=== PATIENT | female | born 1960 | race Caucasian/White ===

== ENCOUNTER 2016-06-01 07:28 | Emergency (ER) | payer OTHER ==
[2016-06-01] MEDS ORDERED: IBUPROFEN 600 MG TAB PO ONE (07:41)
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
[2016-06-01 12:48] VITALS: BP 140/83; PULSE 65; RESP 18; TEMP 98.1; O2SAT 98
== END 2016-06-01 12:48 | disposition home or self-care (01) ==
LOC: EDUNIT#
DX: S39.012A Strain of muscle, fascia and tendon of lower back, initial encounter (principal); M48.54XA Collapsed vertebra, not elsewhere classified, thoracic region, initial encounter for fracture; W18.39XA Other fall on same level, initial encounter; Y92.410 Unspecified street and highway as the place of occurrence of the external cause

== ENCOUNTER 2016-12-25 13:47 | Emergency (ER) | payer OTHER ==
[2016-12-25 13:59] VITALS: O2SAT 95
--- NOTE | 2016-12-25 14:52 | EDPHY ---
H & P Stated Complaint: seizure Time Seen by Provider: 12/25/16 14:51 - Personal History Current Tetanus/Diphtheria Vaccine: Unsure Current Tetanus Diphtheria and Acellular Pertussis (TDAP): Unsure Tetanus Vaccine Date: within 10 years - Medical/Surgical History Hx Asthma: No Hx Chronic Respiratory Disease: No Hx Diabetes: No Hx Cardiac Disease: No Hx Renal Disease: No Hx Cirrhosis: No Hx Alcoholism: No Hx HIV/AIDS: No Hx Splenectomy or Spleen Trauma: No Other PMH: epilespsy hyperlipidemia, HTN, hypothyroid, anxiety - Social History Smoking Status: Never smoked Constitutional: Initial Vital Signs Temperature (C) 37.3 C 12/25/16 13:58 Heart Rate 94 12/25/16 13:58 Respiratory Rate 18 12/25/16 13:58 Blood Pressure 122/91 H 12/25/16 13:58 O2 Sat (%) 95 12/25/16 13:58 O2 Delivery Mode Room Air Allergies/Adverse Reactions: acetaminophen [From Tylenol] Allergy (Verified 12/25/16 13:58) codeine Allergy (Verified 12/25/16 13:58) loratadine [From Claritin] Allergy (Verified 12/25/16 13:58) Home Medications: Medication Instructions Recorded Atenolol [Tenormin 25 mg (*)] 04/16/15 Atorvastatin Calcium [Lipitor 10 04/16/15 mg (*)] Levothyroxine [Synthroid 25 mcg 04/16/15 (*)] clonazePAM [CLONAZEPAM] 04/16/15 levETIRAcetam [Keppra] 04/16/15 Medical Decision Making ED Course/Re-evaluation: CHIEF COMPLAINT: Seizure HISTORY OF PRESENT ILLNESS: The patient is a 56 y/o female with a history of epilepsy arriving after a reported seizure this afternoon. She does not remember the incident today, but says "I've been having grand mals" several times this year. She notes she was up late this morning and thinks that contributed to her seizure today. She's had multiple rounds of brain imaging and EEGs for her seizures. She takes Keppra to manage her condition. She denies missing any doses and states she is always compliant with her medication and takes it at the same time twice daily. She denies any trauma other than a mild tongue abrasion from the event today and currently only complains of fatigue. REVIEW OF SYSTEMS: A 10 point review of systems was performed and is negative with the exception of the elements mentioned in the history of present illness. PHYSICAL EXAM: HR, BP, O2 Sat, RR. Temp noted General Appearance: Alert, well hydrated, appropriate, and non-toxic appearing. Head: Atraumatic without scalp tenderness or obvious injury Eyes: Pupils equal, round, reactive to light and accommodation, EOMI, no trauma , no injection. Nose: Atraumatic, no rhinorrhea, clear. Throat: There is no erythema or exudates, no lesions, normal tonsils, mucus membranes moist. Left lateral tongue abrasion. Neck: Supple, nontender, no lymphadenopathy. Respiratory: No retractions, no distress, no wheezes, and no accessory muscle use. Lungs are clear to auscultation bilaterally. Cardiovascular: Regular rate and rhythm, no murmurs, rubs, or gallops. Good capillary refill all extremities. Gastrointestinal: Abdomen is soft, nontender, non-distended, no masses, no rebound, no guarding, no peritoneal signs. Musculoskeletal: Normal active ROM of all extremities, atraumatic. Neurological: Alert, appropriate, and interactive. Nonfocal neuro exam. Skin: No rashes, good turgor, no nodules on palpation. Past medical history: Epilepsy since age 6, baseline left shoulder pain. Past surgical history: denies Family history: noncontributory Social history: Lives in [place] DIFFERENTIAL DIAGNOSIS: The differential diagnosis for the patient's seizure included but was not limited to electrolyte abnormality, alcohol withdrawal, medication noncompliance, head injury, ERP PM structural abnormality, and break through seizure. MEDICAL DECISION MAKING: This is a 56 y/o female with a history of epilepsy who presents for evaluation following a seizure this afternoon. She currently only complains of feeling fatigued. Basic chemistry panel shows low CO2 and elevated anion gap, indicative of a seizure. No indication for imaging. Patient will be discharged home in good condition with standard seizure care and return precautions. She is comfortable with this plan. - Data Points Laboratory Results: Laboratory Results 12/25/16 13:50 12/25/16 13:50 Sodium 143 mEq/L mEq/L (134-144) Potassium 4.4 mEq/L mEq/L (3.5-5.2) Chloride 106 mEq/L mEq/L (97-110) Carbon Dioxide 15 mEq/l L mEq/l (22-31) Anion Gap 22 mEq/L H mEq/L (8-16) BUN 17 mg/dL mg/dL (7-23) Creatinine 0.8 mg/dL mg/dL (0.6-1.0) Estimated GFR > 60 Glucose 81 mg/dL mg/dL (70-100) Calcium 9.4 mg/dL mg/dL (8.5-10.4) Departure - Departure Disposition: Home, Routine, Self-Care Clinical Impression: Seizure disorder Condition: Good Instructions: Epilepsy (ED) Additional Instructions: 1. Take your Keppra as prescribed. 2. Follow up with your neurologist to discuss this breakthrough seizure. 3. No driving or other activities that could put you or others at risk in the case of a recurrent seizure. 4. Return to the ED for any worsening of condition. Referrals: Patient,NotPresent [Unknown] - As per Instructions Ronen Dumont DO [Doctor of Osteopathy] - As per Instructions Report Scribed for: Adrian Judge Report Scribed by: Sheila Grimm Date of Report: 12/25/16 Time of Report: 15:01
[2016-12-25 15:12] LABS: ANION GAP 22 mEq/L (8-16); CALCIUM 9.4 mg/dL (8.5-10.4); CARBON DIOXIDE 15 mEq/l (22-31); CHLORIDE 106 mEq/L (97-110); CREATININE 0.8 mg/dL (0.6-1.0); GLOMERULAR FILTRATION RATE > 60; GLUCOSE 81 mg/dL (70-100); POTASSIUM 4.4 mEq/L (3.5-5.2); SODIUM 143 mEq/L (134-144)
[2016-12-25 15:43] VITALS: BP 155/63; PULSE 85; RESP 16; TEMP 98.2
== END 2016-12-25 15:43 | disposition home or self-care (01) ==
LOC: EDUNIT#
DX: G40.909 Epilepsy, unspecified, not intractable, without status epilepticus (principal); I10 Essential (primary) hypertension

== ENCOUNTER 2018-06-09 11:35 | Emergency (ER) | payer OTHER ==
--- NOTE | 2018-06-09 11:36 | EDPHY ---
H & P Time Seen by Provider: 06/09/18 11:38 Constitutional: Initial Vital Signs Temperature (C) 36.5 C 06/09/18 11:40 Heart Rate 78 06/09/18 11:40 Respiratory Rate 18 06/09/18 11:40 Blood Pressure 169/90 H 06/09/18 11:40 O2 Sat (%) 94 06/09/18 11:40 O2 Delivery Mode Room Air Allergies/Adverse Reactions: acetaminophen [From Tylenol] Allergy (Verified 12/25/16 13:58) codeine Allergy (Verified 12/25/16 13:58) loratadine [From Claritin] Allergy (Verified 12/25/16 13:58) Home Medications: Medication Instructions Recorded Atenolol [Tenormin 25 mg (*)] 04/16/15 Atorvastatin Calcium [Lipitor 10 04/16/15 mg (*)] Levothyroxine [Synthroid 25 mcg 04/16/15 (*)] clonazePAM [CLONAZEPAM] 04/16/15 levETIRAcetam [Keppra] 04/16/15 Medical Decision Making ED Course/Re-evaluation: CHIEF COMPLAINT: Seizures HISTORY OF PRESENT ILLNESS: The patient is a 57 y/o female with a history of epilepsy [place] [employer] [place] 3 witnessed seizures this morning. She had a witnessed tonic-clonic seizure lasting approximately 30 seconds prior to EMS arrival. She was assisted to the ground and did not suffer obvious trauma during this seizure. On EMS arrival, she was alert and oriented with a normal BGL. She initially declined transport, but as she was walking out of the gym she had two apparent absence seizures in front of EMS and was confused. She somewhat disputes these two second seizures, but cannot provide much description about them. She is again alert and oriented upon arrival here. She does report a history of absence seizures. Her last breakthrough seizure was in April and her neurologist has been increasing her medications recently. She is currently on 3000mg Keppra BID and 1000mg Aptiom QD. She denies recent trauma or illness. REVIEW OF SYSTEMS: A comprehensive 10 system review of systems is otherwise negative aside from elements mentioned in the history of present illness and medical decision making. PHYSICAL EXAM: HR, BP, O2 Sat, RR. Temp noted General Appearance: Alert, well hydrated, appropriate, and non-toxic appearing. Head: Atraumatic without scalp tenderness or obvious injury Eyes: Pupils equal, round, reactive to light and accommodation, EOMI, no trauma , no injection. Nose: Atraumatic, no rhinorrhea, clear. Throat: Mucus membranes moist. Neck: Supple, nontender, no lymphadenopathy. Respiratory: No retractions, no distress, no wheezes, and no accessory muscle use. Lungs are clear to auscultation bilaterally. Cardiovascular: Regular rate and rhythm, no murmurs, rubs, or gallops. Good capillary refill all extremities. Gastrointestinal: Abdomen is soft, nontender, non-distended, no masses, no rebound, no guarding, no peritoneal signs. Musculoskeletal: Normal active ROM of all extremities, atraumatic. Neurological: Alert, appropriate, and interactive. The patient has non-focal cranial nerves, motor, sensory, and cerebellar exam. Skin: No rashes, good turgor, no nodules on palpation. Past medical history: Hypertension, hypercholesterolemia, epilepsy Past surgical history: Noncontributory Family history: Noncontributory Social history: Does not drive. Neurologist: Dr. Sandy Garrido in [place]. DIFFERENTIAL DIAGNOSIS: The differential diagnosis for the patient's seizure included but was not limited to electrolyte abnormality, alcohol withdrawal, medication noncompliance, head injury, [employer] structural abnormality, and break through seizure. MEDICAL DECISION MAKING: This is a 57 y/o female with a long history of epilepsy who presents after 1 tonic clonic seizure possibly followed by 2 absence seizures. She is closely followed by her neurologist for these. She denies any trauma or any complaints at this time. She is completely alert and oriented with a normal neuro exam. ISTAT is normal. She declines further work up here. She would like to return home and follow up with her neurologist as an outpatient. I feel this is appropriate given long history of epilepsy, lack of trauma today, and established follow up. Standard precautions discussed. - Data Points Laboratory Results: 06/09/18 11:53 POC Hgb 14.6 gm/dL gm/dL (12.6-16.3) POC Hct 43 % % (38-47) POC Sodium 131 mEq/L L mEq/L (135-145) POC Potassium 4.3 mEq/L mEq/L (3.3-5.0) POC Chloride 93 mEq/L L mEq/L (97-110) POC BUN 18 mg/dL mg/dL (7-23) POC Creatinine 0.6 mg/dL mg/dL (0.6-1.0) POC Glucose 88 mg/dL mg/dL (70-100) Point of Care Test Results: Chemistry 06/09/18 11:53 POC Sodium 131 mEq/L L mEq/L (135-145) POC Potassium 4.3 mEq/L mEq/L (3.3-5.0) POC Chloride 93 mEq/L L mEq/L (97-110) POC BUN 18 mg/dL mg/dL (7-23) POC Creatinine 0.6 mg/dL mg/dL (0.6-1.0) POC Glucose 88 mg/dL mg/dL (70-100) ISTAT H&H 06/09/18 11:53 POC Hgb 14.6 gm/dL gm/dL (12.6-16.3) POC Hct 43 % % (38-47) Departure - Departure Disposition: Home, Routine, Self-Care Clinical Impression: Seizure disorder Condition: Good Instructions: Epilepsy (ED) Additional Instructions: Continue taking antiepileptic medications as directed. Follow up with your neurologist in the next few days. Do not drive or perform any activities that could put you or others at risk of injury in case of recurrent seizures. Return to the ED for any worsening of condition. Referrals: Primo Torres MD [Medical Doctor] - As per Instructions Report Scribed for: Adrian Judge Report Scribed by: Sheila Grimm Date of Report: 06/09/18 Time of Report: 11:47
[2018-06-09 12:24] VITALS: BP 152/78
== END 2018-06-09 12:29 | disposition home or self-care (01) ==
LOC: EDUNIT#
DX: G40.909 Epilepsy, unspecified, not intractable, without status epilepticus (principal)
CPT/HCPCS: 82435-PO; 82565-PO; 82947-PO; 84132-PO; 84295-PO; 84520-PO; 85014-ER

== ENCOUNTER 2018-07-20 08:13 | Emergency (ER) | payer OTHER ==
--- NOTE | 2018-07-20 08:24 | EDPHY ---
H & P Time Seen by Provider: 07/20/18 08:15 HPI/ROS: CHIEF COMPLAINT: Seizure HISTORY OF PRESENT ILLNESS: A 57-year-old female with absence seizures presents after a a seizure. She was at work at the [employer] this morning. She walked into the locker room and found the room in disarray. She became quite agitated about this and then 'fainted'. She fell backwards and sustained a small laceration to the scalp. She was not postictal. She feels this is typical of her prior absent seizures. Last seizure was 1 month ago. She currently feels back to normal. No headache or neck pain. On Keppra 3000 mg twice daily, compliant with medications. Tetanus is up-to-date. REVIEW OF SYSTEMS: complete 10 point ROS reviewed and is negative except for the noted elements in the HPI - Personal History Tetanus Vaccine Date: within 10 years - Medical/Surgical History Hx Asthma: No Hx Chronic Respiratory Disease: No Hx Diabetes: No Hx Cardiac Disease: No Hx Renal Disease: No Hx Cirrhosis: No Hx Alcoholism: No Hx HIV/AIDS: No Hx Splenectomy or Spleen Trauma: No Other PMH: epilespsy hyperlipidemia, HTN, hypothyroid, anxiety - Social History Smoking Status: Never smoked Alcohol Use: Sober Drug Use: None - Physical Exam Exam: General Appearance: Alert, no distress Head: Posterior scalp hematoma and laceration Eyes: No conjunctival erythema, PERRLA, EOMI ENT, Mouth: No hemotympanum, no oral trauma, no bony tenderness Neck: Nontender, full range of motion without pain Respiratory: No chest wall tenderness, lungs clear bilaterally Cardiovascular: Regular rate and rhythm Abdomen: Abdomen is soft and nontender Skin: Scalp laceration Back: No midline T/L/S tenderness Extremities: Pelvis is stable and nontender; no extremity tenderness or deformity, range of motion without pain Neurological: A&Ox3, normal motor function, normal sensory exam, cranial nerves intact Psychiatric: Mood and affect normal Constitutional: Initial Vital Signs Temperature (C) 36.7 C 07/20/18 08:19 Heart Rate 67 07/20/18 08:19 Respiratory Rate 16 07/20/18 08:19 Blood Pressure 173/79 H 07/20/18 08:19 O2 Sat (%) 96 07/20/18 08:19 O2 Delivery Mode Room Air Allergies/Adverse Reactions: acetaminophen [From Tylenol] Allergy (Verified 07/30/17 13:58) codeine Allergy (Verified 12/25/16 13:58) loratadine [From Claritin] Allergy (Verified 07/20/18 08:18) Home Medications: Medication Instructions Recorded Atenolol [Tenormin 25 mg (*)] 04/16/15 Atorvastatin Calcium [Lipitor 10 04/16/15 mg (*)] Levothyroxine [Synthroid 25 mcg 04/16/15 (*)] clonazePAM [CLONAZEPAM] 04/16/15 levETIRAcetam [Keppra] 04/16/15 Medical Decision Making Procedures: Procedure: Laceration repair. The 2 cm irregular laceration on the scalp was anesthetized using lidocaine. The wound was irrigated, draped and explored to its base with a gloved finger. There were no deep structures involved. No foreign body palpable. The wound was repaired with jose. The wound repair was simple. ED Course/Re-evaluation: This patient presents after a typical absence seizure. No headache and neurologic exam is normal. Neuro imaging is not indicated. The scalp laceration was cleansed per protocol. Observation in the emergency department, neurologic exam remained normal and no recurrent seizure. Neurology follow-up. Differential Diagnosis: Differential diagnosis includes though it is not limited to status epilepticus, hypoglycemia, intracranial hemorrhage, CVA, benzodiazepine withdrawal, alcohol withdrawal, epilepsy. - Data Points Laboratory Results: Laboratory Results 07/20/18 08:27 07/20/18 08:27 07/20/18 07/20/18 08:27 08:27 WBC 5.72 10^3/uL 10^3/uL (3.80-9.50) RBC 5.35 10^6/uL H 10^6/uL (4.18-5.33) Hgb 13.6 g/dL g/dL (12.6-16.3) Hct 42.1 % % (38.0-47.0) MCV 78.7 fL L fL (81.5-99.8) MCH 25.4 pg L pg (27.9-34.1) MCHC 32.3 g/dL L g/dL (32.4-36.7) RDW 14.1 % % (11.5-15.2) Plt Count 314 10^3/uL 10^3/uL (150-400) MPV 9.9 fL fL (8.7-11.7) Neut % (Auto) 70.7 % % (39.3-74.2) Lymph % (Auto) 18.0 % % (15.0-45.0) Bucks % (Auto) 8.4 % % (4.5-13.0) Eos % (Auto) 1.7 % % (0.6-7.6) Baso % (Auto) 0.7 % % (0.3-1.7) Nucleat RBC Rel Count 0.0 % % (0.0-0.2) Absolute Neuts (auto) 4.04 10^3/uL 10^3/uL (1.70-6.50) Absolute Lymphs (auto) 1.03 10^3/uL 10^3/uL (1.00-3.00) Absolute Monos (auto) 0.48 10^3/uL 10^3/uL (0.30-0.80) Absolute Eos (auto) 0.10 10^3/uL 10^3/uL (0.03-0.40) Absolute Basos (auto) 0.04 10^3/uL 10^3/uL (0.02-0.10) Absolute Nucleated RBC 0.00 10^3/uL 10^3/uL (0-0.01) Immature Gran % 0.5 % % (0.0-1.1) Immature Gran # 0.03 10^3/uL 10^3/uL (0.00-0.10) Sodium 132 mEq/L L mEq/L (135-145) Potassium 3.6 mEq/L mEq/L (3.5-5.2) Chloride 95 mEq/L L mEq/L (97-110) Carbon Dioxide 26 mEq/l mEq/l (22-31) Anion Gap 11 mEq/L mEq/L (6-14) BUN 14 mg/dL mg/dL (7-23) Creatinine 0.6 mg/dL mg/dL (0.6-1.0) Estimated GFR > 60 Glucose 93 mg/dL mg/dL (70-100) Calcium 9.4 mg/dL mg/dL (8.5-10.4) Departure - Departure Disposition: Home, Routine, Self-Care Clinical Impression: Seizure disorder Scalp laceration Qualifiers: Encounter type: initial encounter Qualified Code(s): S01.01XA - Laceration without foreign body of scalp, initial encounter Condition: Good Instructions: Head Injury (ED), Epilepsy (ED), Staple Care (ED) Additional Instructions: Return in 7 days for staple removal. Follow-up with your neurologist in [place]. Return with any concerns. Referrals: PORTIA WHITE [Primary Care Provider] - As per Instructions
[2018-07-20 08:36] LABS: PLATELET COUNT 314 10^3/uL (150-400)
[2018-07-20 09:31] VITALS: BP 169/70
--- NOTE | 2018-07-20 14:57 | CPEKG ---
Test Reason : OPEN Blood Pressure : / mmHG Vent. Rate : 059 BPM Atrial Rate : 060 BPM P-R Int : 180 ms QRS Dur : 102 ms QT Int : 466 ms P-R-T Axes : 049 044 020 degrees QTc Int : 462 ms Sinus rhythm Probable left ventricular hypertrophy Confirmed by Nicole Mcfadden ([id number]) on 07/20/2018 2:57:12 PM Referred By: Nicole Mcfadden Confirmed By:Nicole Mcfadden
== END 2018-07-20 10:02 | disposition home or self-care (01) ==
LOC: EDUNIT#
PROC: 0HQ0XZZ Repair Scalp Skin, External Approach (ICD-10-PCS; principal; 2018-07-20)
DX: G40.909 Epilepsy, unspecified, not intractable, without status epilepticus (principal); S01.01XA Laceration without foreign body of scalp, initial encounter; W19.XXXA Unspecified fall, initial encounter; Y92.39 Other specified sports and athletic area as the place of occurrence of the external cause; Y99.0 Civilian activity done for income or pay; E78.5 Hyperlipidemia, unspecified; I10 Essential (primary) hypertension; E03.9 Hypothyroidism, unspecified; F41.9 Anxiety disorder, unspecified

== ENCOUNTER 2018-08-29 11:47 | Emergency (ER) | payer OTHER ==
[2018-08-29 12:04] LABS: PLATELET COUNT 321 10^3/uL (150-400)
--- NOTE | 2018-08-29 12:37 | EDPHY ---
HPI/HX/ROS/PE/MDM Narrative: CHIEF COMPLAINT: Seizure HPI: This patient is a 57-year-old male with known history of epilepsy. She arrives via EMS following a witnessed seizure at work this morning. Per staff, her last seizure at work was about one month ago. Today, she remained quite postictal after EMS arrival so they proceeded with transport here the the emergency department. BGL 115. She is currently alert and answering questions appropriately. She takes Keppra and Aptiom as prescribed. She denies any trauma. No recent illness or other complaints. REVIEW OF SYSTEMS: A comprehensive 10 system review of systems is otherwise negative aside from elements mentioned in the history of present illness and medical decision making. PMH: Seizure disorder. SOCIAL HISTORY: Employed, works at [employer]. Single. Lives in [place]. PHYSICAL EXAM: General:Patient is alert, in no acute distress. ENT:Eyes are normal to inspection. ENT inspection normal. Neck: Normal inspection. Full range of motion. Respiratory:No respiratory distress. Breath sounds normal bilaterally. Cardiovascular: Regular rate and rhythm. Strong peripheral pulses. Normal cap refill. Abdomen:The abdomen is nontender to palpation. There are no peritoneal signs. There are normal bowel sounds. Back: Normal to inspection. No tenderness to palpation. Skin: Normal color. No rash. Warm and dry. Extremities: Normal appearance. Full range of motion. Neuro: Mildly confused. Normal motor function. Normal sensory function. ED Course: 11:48 Met EMS on arrival. 57 y/o female with known seizure disorder presents following a witnessed seizure this morning. Plan for labs including CBC, chemistries. Reviewed laboratory studies. These are completely unremarkable. Reassessed patient. Discussed laboratory results. She is feeling well and is comfortable with discharge home. I recommended followup with neurology for discussion of her medication regimen and breakthrough seizures. Follow up and return precautions discussed. She is comfortable with this plan. MDM: This patient presents with recurrent seizure in setting of known seizure disorder. There are no red flags to suggest intracranial injury or bleed, CVA, trauma or toxicologic emergency. - Data Points Laboratory Results: Laboratory Results 08/29/18 11:50 08/29/18 11:50 08/29/18 08/29/18 11:50 11:50 WBC 5.34 10^3/uL 10^3/uL (3.80-9.50) RBC 4.83 10^6/uL 10^6/uL (4.18-5.33) Hgb 12.4 g/dL L g/dL (12.6-16.3) Hct 37.5 % L % (38.0-47.0) MCV 77.6 fL L fL (81.5-99.8) MCH 25.7 pg L pg (27.9-34.1) MCHC 33.1 g/dL g/dL (32.4-36.7) RDW 14.3 % % (11.5-15.2) Plt Count 321 10^3/uL 10^3/uL (150-400) MPV 10.5 fL fL (8.7-11.7) Neut % (Auto) 49.8 % % (39.3-74.2) Lymph % (Auto) 33.0 % % (15.0-45.0) Fisher % (Auto) 12.7 % % (4.5-13.0) Eos % (Auto) 3.4 % % (0.6-7.6) Baso % (Auto) 0.9 % % (0.3-1.7) Nucleat RBC Rel Count 0.0 % % (0.0-0.2) Absolute Neuts (auto) 2.66 10^3/uL 10^3/uL (1.70-6.50) Absolute Lymphs (auto) 1.76 10^3/uL 10^3/uL (1.00-3.00) Absolute Monos (auto) 0.68 10^3/uL 10^3/uL (0.30-0.80) Absolute Eos (auto) 0.18 10^3/uL 10^3/uL (0.03-0.40) Absolute Basos (auto) 0.05 10^3/uL 10^3/uL (0.02-0.10) Absolute Nucleated RBC 0.00 10^3/uL 10^3/uL (0-0.01) Immature Gran % 0.2 % % (0.0-1.1) Immature Gran # 0.01 10^3/uL 10^3/uL (0.00-0.10) Sodium 134 mEq/L L mEq/L (135-145) Potassium 4.6 mEq/L mEq/L (3.5-5.2) Chloride 96 mEq/L L mEq/L (97-110) Carbon Dioxide 25 mEq/l mEq/l (22-31) Anion Gap 13 mEq/L mEq/L (6-14) BUN 20 mg/dL mg/dL (7-23) Creatinine 0.6 mg/dL mg/dL (0.6-1.0) Estimated GFR > 60 Glucose 90 mg/dL mg/dL (70-100) Calcium 9.1 mg/dL mg/dL (8.5-10.4) General Time Seen by Provider: 08/29/18 11:50 Initial Vital Signs: Initial Vital Signs Temperature (C) 36.6 C 08/29/18 11:54 Heart Rate 68 08/29/18 11:54 Respiratory Rate 21 H 08/29/18 11:54 Blood Pressure 166/137 H 08/29/18 11:54 O2 Sat (%) 97 08/29/18 11:54 O2 Delivery Mode Room Air Allergies/Adverse Reactions: acetaminophen [From Tylenol] Allergy (Verified 12/25/16 13:58) codeine Allergy (Verified 12/25/16 13:58) loratadine [From Claritin] Allergy (Verified 07/20/18 08:18) Home Medications: Medication Instructions Recorded Atenolol [Tenormin 25 mg (*)] 04/16/15 Atorvastatin Calcium [Lipitor 10 04/16/15 mg (*)] Levothyroxine [Synthroid 25 mcg 04/16/15 (*)] clonazePAM [CLONAZEPAM] 04/16/15 levETIRAcetam [Keppra] 04/16/15 Departure - Departure Disposition: Home, Routine, Self-Care Clinical Impression: Seizure disorder Instructions: Recurrent Seizures in Adults (ED) Additional Instructions: Follow-up with your neurologist this week. Return to the Emergency Department for further seizures, severe headache, confusion, fever, or other worsening of condition. Referrals: PORTIA WHITE [Primary Care Provider] - As per Instructions Primo Torres MD [Medical Doctor] - As per Instructions Report Scribed for: Artemio Lerma Report Scribed by: Zaida Cool Date of Report: 08/29/18 Time of Report: 12:39 Physician Review and Approval Statement: Portions of this note were transcribed by an ED scribe. I personally performed the history, physical exam, and medical decision making; and confirm the accuracy of the information in the transcribed note.
[2018-08-29 13:22] VITALS: BP 135/90
== END 2018-08-29 13:32 | disposition home or self-care (01) ==
LOC: EDUNIT#
DX: G40.909 Epilepsy, unspecified, not intractable, without status epilepticus (principal)

== ENCOUNTER 2018-09-19 12:19 | Emergency (ER) | payer OTHER ==
[2018-09-19 12:55] LABS: PLATELET COUNT 326 10^3/uL (150-400)
--- NOTE | 2018-09-19 13:23 | EDPHY ---
General Time Seen by Provider: 09/19/18 12:24 Narrative: CLINICAL IMPRESSION: [Seizure, closed proximal 4th and 5th phalanx fractures, facial contusions ] ASSESSMENT/PLAN: 57-year-old female with a known history of epilepsy, compliant on medications, presents to the emergency department by ambulance after apparently experiencing a seizure today at work. Blood glucose on arrival was 110. This is the patient' s 2nd seizure this month. She was compliant with neurology follow-up following a seizure earlier this month and had 1 of her medications increased. She also reports history of chronic low sodium and takes a sodium replacement pill. She struck her face today but has no midface instability, open wound, dental injury , intraoral laceration or suggestion of [place] fracture, and has declined CT face. She states the last time she had a seizure she "cracked her head open" and is requesting a CT head today which was read by Radiology as negative for acute abnormality. She was found to be hyponatremic at 128 Compared to last lab value earlier this month of 134. BUN elevated suggestive of seizure activity. Remainder of labs without abnormality. She was found to have a left 4th and 5th proximal phalanx fracture with angulation of the 5th finger which was reduced by myself. She was placed in an ulnar gutter splint and provided an orthopedic referral. Case discussed with Dr. Hess. Patient was comfortable [facility] and will contact her neurologist this week. Warning signs for return to ED sooner discussed and discharge DIFFERENTIAL DX: [Differential includes but not limited to seizure in the setting of known epilepsy, hyponatremia, electrolyte imbalance, hypoglycemia, closed-head injury , intracranial hemorrhage, CVA, medication noncompliance ] [ED PROCEDURES:] [See lab and/or imaging results below ] Ulnar gutter splint applied to left hand after I applied traction to left 5th finger to anatomically align proximal phalanx fracture. Neurovascular exam remains intact before and after splint placement. Ortho referral given. ED COURSE: 1:00 p.m.: X-rays reviewed by myself. Positive for proximal phalanx fracture of the 4th and 5th fingers on the left hand. Left 5th finger fracture was reduced by myself, 4th and 5th fingers were marian-taped and ulnar gutter splint applied. Labs reviewed at 1:20 p.m.. Hyponatremic at 1:28 a.m., elevated BUN of 24, no leukocytosis, anemia. Blood glucose 110 on arrival. 2:00: CT results discussed with Dr. Mcelroy. No acute mass, bleeding, skull fracture. CHIEF COMPLAINT: [ Seizure] HPI: [57-year-old female with past medical history of epilepsy controlled with Keppra and Atimol presents to the ED after experiencing a seizure at work today. Patient is post ictal on arrival but answering questions. This is her 2nd seizure in a month and she did see her neurologist after her last seizure and her evening med dose was increase. She said she "cracked her head open" during her last seizure but no CT was done. She hit her left cheek today and injured her left hand with obvious deformity to 5th finger. She denies dental pain, fracture, intraoral laceration or tongue laceration. She denies any other injuries. No drugs/alcohol. She works at [employer] and admits she hadn't had a snack or lunch yet and she thinks that may be what caused the seizure. ] PAST MEDICAL HISTORY: [ Epilepsy, hypertension, hypercholesterolemia, anxiety] [See nurse/triage notes for additional history if applicable ] Pertinent Past Surgical History: [ See nurse triage] Family History: [ non contributory] Social History: non smoker, works at [employer], ambidextrous, no alcohol. REVIEW OF SYSTEMS: All other systems negative Constitutional: [No fever, no chills, appetite change. Eyes: [No discharge, vision change ENT: [No sore throat, congestion, ear pain. + for facial swelling Cardiovascular: [No chest pain, no palpitations.] Respiratory: [No cough, no shortness of breath.] Gastrointestinal: [No abdominal pain, no vomiting, diarrhea.] Genitourinary: [No hematuria, dysuria, flank pain, pelvic pain, no incontinence Musculoskeletal: [No back pain, joint swelling, + left hand joint pain, myalgias.] Skin: [No rashes, color change.] Neurological: [No headache, dizziness, weakness.] PHYSICAL EXAM: General Appearance: [Alert, oriented but post ictal and mildly confused. cooperative, tearful NAD, well hydrated, non-toxic appearing, VSS, no hypoxia.] HEENT: [TMs are clear bilaterally no perforation or FB, no injection, no evidence of serous or mucopurulent otitis. No hemotympanum. brusing and small abrasion to left cheek. no dental injury or fracture. no tongue laceration. Oropharynx clear is no erythema or exudates, no tonsillar hypertrophy or asymmetry. Dentition without abnormality.] Eyes: [PERRLA, no acute vision change, nystagmus, swelling, discharge, pain or photosensitivity. Conjunctiva pink, no pallor or injection] Neck: [Supple, nontender, no lymphadenopathy, no midline pain, FROM, no meningismus.] Respiratory: [There are no retractions, lungs are clear to auscultation.] Cardiac: [Regular rate and rhythm, no murmurs or gallops.] Gastrointestinal: [Abdomen is soft, nontender, bowel sounds normal, no masses/ hernia, no rigidity, guarding or focal peritoneal findings.] Neurological: [ Alert, post ictal. Skin: [Warm, dry, no rashes, no nodules on palpation. see ablve. Musculoskeletal: obvious deformity to left 5th finger at proximal phalanx. Contusions to dorsum of left hand. Psychiatric: [Patient is oriented X 3, there is no agitation. MEDICAL DECISION MAKING: Patient was seen independently. Secondary supervising physician at time of evaluation was Dr. Hess. Diagnosis: Seizure, left 4th/5th proximal phalanx fracture]. New, requires workup Summary:See Assessment and Plan for summary of ED visit ] Clinical lab tests: [ ordered / reviewed]. Independent visualization of images, tracing, or specimens: Yes Decision to obtain medical records or history from someone other than the patient: EMS Review / Summarize previous medical records: Reviewed recent ED visit notes Discussed patient with another provider: radiology Patient Progress: improved, stable for dc - History Smoking Status: Never smoked - Objective Vital Signs: Initial Vital Signs Temperature (C) 37.1 C 09/19/18 12:23 Heart Rate 95 09/19/18 12:23 Respiratory Rate 16 09/19/18 12:23 Blood Pressure 152/82 H 09/19/18 12:23 O2 Sat (%) 65 L 09/19/18 12:23 O2 Delivery Mode Room Air Allergies/Adverse Reactions: acetaminophen [From Tylenol] Allergy (Verified 09/19/18 12:23) codeine Allergy (Verified 09/19/18 12:23) loratadine [From Claritin] Allergy (Verified 09/19/18 12:23) Home Medications: Medication Instructions Recorded Atenolol [Tenormin 25 mg (*)] 04/16/15 Atorvastatin Calcium [Lipitor 10 04/16/15 mg (*)] Levothyroxine [Synthroid 25 mcg 04/16/15 (*)] clonazePAM [CLONAZEPAM] 04/16/15 levETIRAcetam [Keppra] 04/16/15 Laboratory Results: Laboratory Results 09/19/18 12:30 09/19/18 12:30 Medications Given: Discontinued Medications Ibuprofen (Motrin) 600 mg PO EDNOW ONE Stop: 09/19/18 13:32 Last Admin: 09/19/18 13:55 Dose: 600 mg Departure - Departure Disposition: Home, Routine, Self-Care Clinical Impression: Seizure, Proximal phalanx fracture of finger Condition: Fair Instructions: Finger Fracture (ED), Epilepsy (ED) Additional Instructions: DISCHARGE INSTRUCTIONS FROM YOUR DOCTOR Thank you for visiting our emergency department today. You were treated by a physician information services assistant today and your case was reviewed with our ED Attending physician. Please keep in mind that discharge from the emergency department does not mean that there is nothing wrong - it simply means that we have not identified an emergency condition that requires further evaluation or treatment in the hospital. You should always plan to follow up with primary care for re- evaluation of your condition in the next 2-3 days. If you have been referred to a specialist, please call as soon as possible (today or tomorrow) to schedule your follow up appointment at the appropriate time. DIAGNOSTIC WORKUP IN THE EMERGENCY DEPARTMENT INCLUDED LABS AND CT SCAN. YOU DO NOT HAVE ANY EVIDENCE OF INTRACRANIAL BLEEDING, SKULL FRACTURE OR MASS. LABS SHOWED A LOW SODIUM AND WE RECOMMEND THAT THIS BE CHECKED IN THE NEXT 2 DAYS BEFORE THE WEEKEND. I HAVE REVIEWED HER MEDICATIONS AND APTIOM HAS LISTED THE POTENTIAL FOR CAUSING LOW SODIUM. PLEASE CONTACT YOUR NEUROLOGIST FOR AN APPOINTMENT IN THE NEXT 24-48 HOURS. PLEASE CONTINUE YOUR REGULAR SEIZURE MEDICATION UNLESS OTHERWISE ADVISED BY HER NEUROLOGIST. REMAINDER OF LAB WORK WAS REASSURING. WE GAVE YOU A REFERRAL TO ORTHOPEDICS FOR YOUR FRACTURED FINGERS ON THE LEFT HAND. PLEASE CONTACT THEM FOR AN APPOINTMENT AND LEAVE THE SPLINT ON UNTIL YOU SEE THEM. RETURN TO THE EMERGENCY DEPARTMENT FOR RECURRENT SEIZURE, SEVERE HEADACHES, ALTERED MENTAL STATUS, HIGH FEVERS, INCREASED HAND PAIN OR LOSS OF SENSATION TO FINGERS OR ANY OTHER CONCERN. People present with illnesses and injuries in different ways, and it is always possible that we have missed something. You may always return for re-evaluation if symptoms worsen or if they are not improving or if you develop new/different symptoms. Again, thank you for choosing our emergency department. We hope that you feel better. Referrals: Liu Hudson MD [Medical Doctor] - 1-2 days without fail NONE *PRIMARY CARE P,. [Primary Care Provider] - 1-2 days without fail
[2018-09-19] MEDS ORDERED: IBUPROFEN 600 MG TAB PO ONE (13:31)
[2018-09-19 14:13] VITALS: BP 159/79
== END 2018-09-19 14:36 | disposition home or self-care (01) ==
LOC: EDUNIT#
PROC: 0PSVXZZ Reposition Left Finger Phalanx, External Approach (ICD-10-PCS; principal; 2018-09-19)
DX: S62.617A Displaced fracture of proximal phalanx of left little finger, initial encounter for closed fracture (principal); S62.615A Displaced fracture of proximal phalanx of left ring finger, initial encounter for closed fracture; G40.909 Epilepsy, unspecified, not intractable, without status epilepticus